=== PATIENT | female | born 1960 | race Caucasian/White ===

== ENCOUNTER 2022-01-04 11:43 | Emergency (ER) | payer MEDICAID ==
[~2022-01-04] VITALS: Ht 157.5 cm; Wt 73.6 kg
[~2022-01-04 11:43] MED LIST: ASPIRIN 81M81 MG/TA2 PO; GLUCOPHAGE500 MG/TAB PO; PRINIVIL20 MG PO; ZANTAC 150MG T150 MG PO
[2022-01-04 11:56] VITALS: TEMP 98.4
[2022-01-04] MEDS ORDERED: ZOFRAN ODT4 MG PO (14:45)
[2022-01-04 14:54] VITALS: BP 149/81; PULSE 66
[2022-01-05] MEDS ORDERED: ZOFRAN ODT4 MG PO (13:47)
== END 2022-01-04 14:54 | disposition home or self-care (01) ==
LOC: COL.ER 11:43
DX: R11.2 Nausea with vomiting, unspecified (principal)